=== PATIENT | male | born 1935 | race Caucasian/White ===

== ENCOUNTER 2016-11-06 11:03 | Inpatient (IN) | payer MEDICARE ==
[~2016-11-06] VITALS: Ht 172.7 cm; Wt 66.5 kg
[2016-11-06 12:03] LABS: PLATELET COUNT 126 x10^3mcL (130-400); RED CELL DISTRIBUTION WIDTH 16.1 % (11.5-14.5)
[2016-11-06 12:05] LABS: CALCIUM 8.7 mg/dL (8.5-10.1); CARBON DIOXIDE 23.8 mmol/L (21-32); CHLORIDE SERUM 103 mmol/L (98-107); GLUCOSE SERUM 181 mg/dL (74-106); POTASSIUM SERUM 3.8 mmol/L (3.5-5.1); SODIUM SERUM 138 mmol/L (136-145)
[2016-11-06 12:16] LABS: ALBUMIN 3.6 g/dL (3.4-5.0); ALKALINE PHOSPHATASE 94 U/L (46-116); ALT/SGPT 26 U/L (16-63); AST/SGOT 19 U/L (15-37); BILIRUBIN TOTAL 0.93 mg/dL (0.20-1.00); TOTAL PROTEIN, SERUM 7.6 g/dL (6.4-8.2)
[2016-11-06 12:19] LABS: CK-MB 0.8 ng/mL (0-3.6)
[2016-11-06 12:22] LABS: ATYPICAL LYMPH 2 %; BAND NEUTROPHIL 1 % (0-10); BASOPHIL 0 % (0-2); MONOCYTE 13 % (0-7); SEGMENTED NEUTROPHILS 63 % (37-75)
[2016-11-06 12:23] LABS: PLATELET MORPHOLOGY LARGE PLATELET SEEN; rbc morphology (normal/abnorm) ABNORMAL (NORMAL)
[2016-11-06 13:06] LABS: UA SPECIFIC GRAVITY 1.015 (1.005-1.035); microscopic required? YES; urine erythrocyte NEGATIVE (NEGATIVE)
[2016-11-06] MEDS ORDERED: LOVASTATIN20 MG (14:23)
[2016-11-06] MEDS ORDERED: TAMSULOSIN HYD0.4 M1 (14:23)
[2016-11-06] MEDS ORDERED: ZIA10 (14:24)
[2016-11-06] MEDS ORDERED: BENAZEPRIL HYDR20 M1 (14:24)
[2016-11-06] MEDS ORDERED: PROPECIA1 MG (14:24)
[2016-11-06 16:14] VITALS: BP 159/62
[2016-11-06 17:43] VITALS: BP 141/60
[2016-11-06 19:30] VITALS: BP 121/43
[2016-11-07 05:28] VITALS: BP 114/66
[2016-11-07 06:24] LABS: CALCIUM 8.6 mg/dL (8.5-10.1); CARBON DIOXIDE 24.9 mmol/L (21-32); CHLORIDE SERUM 107 mmol/L (98-107); CREATININE SERUM 0.8 mg/dL (0.7-1.3); GLUCOSE SERUM 107 mg/dL (74-106); HDL CHOLESTEROL 40 mg/dL (40-60); MAGNESIUM 1.9 mg/dL (1.8-2.4); PHOSPHOROUS 3.2 mg/dL (2.5-4.9); POTASSIUM SERUM 3.9 mmol/L (3.5-5.1); SODIUM SERUM 138 mmol/L (136-145); TRIGLYCERIDES 82 mg/dL (<150)
[2016-11-07 06:29] LABS: CHOLESTEROL 85 mg/dL (<200); CHOLESTEROL/HDL RATIO 2.1
[2016-11-07 06:39] LABS: PLATELET COUNT 114 x10^3mcL (130-400); RED CELL DISTRIBUTION WIDTH 16.2 % (11.5-14.5)
[2016-11-07 08:07] LABS: BAND NEUTROPHIL 4 % (0-10); BASOPHIL 2 % (0-2); MONOCYTE 10 % (0-7); SEGMENTED NEUTROPHILS 36 % (37-75)
[2016-11-07 08:08] LABS: rbc morphology (normal/abnorm) NORMAL (NORMAL)
[2016-11-07 09:35] VITALS: BP 112/50
[2016-11-07 13:00] VITALS: BP 123/65
[2016-11-07 17:41] VITALS: BP 129/57
[2016-11-07 21:29] VITALS: BP 140/63
[2016-11-08 06:03] VITALS: BP 132/59
[2016-11-08 06:19] LABS: CALCIUM 8.7 mg/dL (8.5-10.1); CARBON DIOXIDE 25.3 mmol/L (21-32); CHLORIDE SERUM 105 mmol/L (98-107); CREATININE SERUM 0.8 mg/dL (0.7-1.3); GLUCOSE SERUM 101 mg/dL (74-106); POTASSIUM SERUM 3.8 mmol/L (3.5-5.1); SODIUM SERUM 138 mmol/L (136-145)
[2016-11-08 09:42] LABS: PLATELET COUNT 136 x10^3mcL (130-400)
[2016-11-08 09:47] LABS: RED CELL DISTRIBUTION WIDTH 16.6 % (11.5-14.5)
[2016-11-08 10:39] VITALS: BP 132/56
[2016-11-08 10:56] LABS: ATYPICAL LYMPH 8 %; BAND NEUTROPHIL 5 % (0-10); BASOPHIL 0 % (0-2); MONOCYTE 5 % (0-7); SEGMENTED NEUTROPHILS 52 % (37-75); rbc morphology (normal/abnorm) ABNORMAL (NORMAL)
[2016-11-08 11:59] VITALS: BP 132/56
== END 2016-11-08 13:30 | disposition home or self-care (01) | DRG 640 ==
LOC: ED 11:03 → DU 14:42
PROVIDERS: Emergency Medicine; Family Medicine; ADMIT Family Medicine
DX: E86.0 Dehydration (principal); N17.0 Acute kidney failure with tubular necrosis; E87.2 Acidosis; I10 Essential (primary) hypertension; D70.9 Neutropenia, unspecified; E78.5 Hyperlipidemia, unspecified; N40.0 Benign prostatic hyperplasia without lower urinary tract symptoms; D63.8 Anemia in other chronic diseases classified elsewhere
CPT/HCPCS: 83880; J7030; Q0092

== ENCOUNTER 2017-06-01 09:44 | Emergency (ER) | payer MEDICARE ==
[~2017-06-01 09:44] MED LIST: BENAZEPRIL HYDR20 M1; LOVASTATIN20 MG; PROPECIA1 MG; TAMSULOSIN HYD0.4 M1; ZIA10
[2017-06-01 10:51] LABS: PLATELET COUNT 242 x10^3mcL (130-400)
[2017-06-01 10:56] LABS: CARBON DIOXIDE 27.9 mmol/L (21-32); CHLORIDE SERUM 103 mmol/L (98-107); CREATININE SERUM 0.8 mg/dL (0.7-1.3); GLUCOSE SERUM 121 mg/dL (74-106); POTASSIUM SERUM 3.5 mmol/L (3.5-5.1); SODIUM SERUM 140 mmol/L (136-145)
[2017-06-01 11:01] LABS: ALKALINE PHOSPHATASE 127 U/L (46-116); ALT/SGPT 32 U/L (16-63); AST/SGOT 19 U/L (15-37); TOTAL PROTEIN, SERUM 8.2 g/dL (6.4-8.2)
[2017-06-01 11:20] LABS: RED CELL DISTRIBUTION WIDTH 18.2 % (11.5-14.5)
[2017-06-01 11:59] LABS: ATYPICAL LYMPH 4 %; BAND NEUTROPHIL 3 % (0-10); BASOPHIL 0 % (0-2); MONOCYTE 20 % (0-7); SEGMENTED NEUTROPHILS 12 % (37-75)
[2017-06-01 12:00] LABS: rbc morphology (normal/abnorm) ABNORMAL (NORMAL)
[2017-06-01 13:17] VITALS: BP 142/73
== END 2017-06-01 13:17 | disposition home or self-care (01) ==
LOC: ED 09:44
PROVIDERS: Emergency Medicine
DX: D72.819 Decreased white blood cell count, unspecified (principal); I10 Essential (primary) hypertension; E78.00 Pure hypercholesterolemia, unspecified
CPT/HCPCS: 36415